=== PATIENT | female | born 1995 | race African-American/Black ===

== ENCOUNTER 2024-08-21 06:52 | Inpatient (IN) | payer OTHER ==
[~2024-08-21] VITALS: Ht 167.6 cm; Wt 60.4 kg
[2024-08-21 07:24] LABS: COVID AG,FIA SOURCE NASAL SWAB
[2024-08-21 07:48] LABS: SARS-COV2 (COVID) ANTIGEN,FIA Negative (Negative)
[2024-08-21 07:49] LABS: BASOPHILS % (AUTO) 1.1 % (0.0-2.0); EOSINOPHILS % (AUTO) 3.7 % (1.0-6.0); HEMATOCRIT 33.9 % (36-46); HEMOGLOBIN 10.3 g/dL (12.0-16.0); LYMPHOCYTES # (AUTO) 2.4 K/uL (1.0-4.8); LYMPHOCYTES % (AUTO) 44.7 % (22.0-44.0); MEAN CORPUSCULAR HEMOGLOBIN 23.6 pg (26.0-34.0); MEAN CORPUSCULAR HGB CONC 30.3 G/dL (31.0-37.0); MEAN CORPUSCULAR VOLUME 78 fL (80-100); MONOCYTES # (AUTO) 0.2 K/uL (0.1-1.0); MONOCYTES % (AUTO) 4.5 % (2.0-9.0); NEUTROPHILS # (AUTO) 2.5 K/uL (1.8-7.7); PLATELET COUNT (AUTO) 353 K/uL (150-450); RED BLOOD CELL COUNT(AUTO) 4.34 MIL/uL (4.00-5.20); RED CELL DISTRIBUTION WIDTH 20.6 % (11.5-14.5); WHITE BLOOD COUNT (AUTO) 5.4 K/uL (4.5-11.0)
[2024-08-21 07:58] LABS: RBC MORPHOLOGY COMMENT ABNORMAL RBC MORPH
[2024-08-21 08:04] LABS: ANION GAP 10 mmol/L (8-16); CARBON DIOXIDE 23 mmol/L (22-29); CHLORIDE 103 mmol/L (98-107); CREATININE 0.82 mg/dL (0.60-1.30); GLOMERULAR FILTR. RATE CALC > 60 mL/min (>60); GLUCOSE,RANDOM 82 mg/dL (70-110); POTASSIUM 3.8 mmol/L (3.5-5.1); SODIUM SERUM 136 mmol/L (136-145); UREA NITROGEN, BLOOD 12 mg/dL (7-18)
[2024-08-21 08:09] LABS: ALCOHOL, BLOOD (SERUM) < 3 mg/dL (0-10)
[2024-08-21] MEDS ORDERED: ZOLPIDEM TARTRATE 10 MG TABLET PO PRN (10:15)
[2024-08-21] MEDS ORDERED: LORazepam 2 MG/ML VIAL ONE (13:00)
[2024-08-21] MEDS ORDERED: DiphenhydrAMINE HCL 50 MG/ML VIAL ONE (13:00)
[2024-08-21] MEDS ORDERED: HALOPERIDOL LACTATE 5 MG/ML VIAL ONE (13:00)
[2024-08-21] MEDS: HALOPERIDOL LACTATE 5 MG/ML VIAL IM ONE (13:19)
[2024-08-21] MEDS: LORazepam 2 MG/ML VIAL IM ONE (13:19)
[2024-08-21] MEDS: DiphenhydrAMINE HCL 50 MG/ML VIAL IM ONE (13:19)
[2024-08-21 15:07] VITALS: O2SAT 100
[2024-08-21 18:27] VITALS: BP 100/71; PULSE 62; RESP 16; TEMP 97.1; O2SAT 97
[2024-08-21 18:35] VITALS: BP 88/56; PULSE 81; RESP 16
[2024-08-21 18:40] VITALS: BP 85/45; PULSE 83; RESP 16
[2024-08-22 01:34] VITALS: BP 105/75; PULSE 66; RESP 16; TEMP 97.2; O2SAT 96
[2024-08-22 13:24] LABS: CHOL/HDL RATIO 2.1 (3.9-5.7)
[2024-08-22] MEDS ORDERED: DOCUSATE SODIUM 100 MG CAPSULE PO PRN (15:30)
[2024-08-22] MEDS ORDERED: PETROLATUM,WHITE 28 GM JELLY TP PRN (15:30)
[2024-08-22] MEDS ORDERED: GuaiFENesin/D-METHORPHAN [SUGAR-FREE] 200-20MG/10 ML SYRUP UDCUP PO PRN (15:30)
[2024-08-22] MEDS ORDERED: MAG HYDROX/ALUMINUM HYD/SIMETH ES 30 ML SUSPENSION UDCUP PO PRN (15:30)
[2024-08-22] MEDS ORDERED: CloNIDine HCL 0.1 MG TABLET PO PRN (15:30)
[2024-08-22] MEDS ORDERED: ONDANSETRON 4 MG TABLET PO PRN (15:30)
[2024-08-22] MEDS ORDERED: MAGNESIUM HYDROXIDE SUSPENSION 30 ML UDCUP PO PRN (15:30)
[2024-08-22] MEDS ORDERED: IBUPROFEN 400 MG TABLET PO PRN (15:30)
[2024-08-22] MEDS ORDERED: LOPERAMIDE HCL 2 MG CAPSULE PO PRN (15:30)
[2024-08-22] MEDS ORDERED: NICOTINE 14 MG/24 HOUR PATCH TD PRN (15:30)
[2024-08-22] MEDS ORDERED: ALBUTEROL SULFATE HFA 90 MCG/PUFF 8 GM INHALER IH PRN (15:30)
[2024-08-22 20:18] VITALS: BP 110/74; PULSE 72; RESP 16; TEMP 97.3; O2SAT 97
[2024-08-23 08:49] VITALS: BP 105/65; PULSE 98; RESP 16; TEMP 96.8; O2SAT 99
[2024-08-23] MEDS ORDERED: LORazepam 2 MG/ML VIAL ONE (16:37)
[2024-08-23] MEDS: HALOPERIDOL LACTATE 5 MG/ML VIAL IM ONE (16:46)
[2024-08-23] MEDS: DiphenhydrAMINE HCL 50 MG/ML VIAL IM ONE (16:46)
[2024-08-23] MEDS: LORazepam 2 MG/ML VIAL IM ONE (16:46)
[2024-08-23] MEDS: INFLUENZA VIRUS VACCINE TVS (6MO+) 2024-25/PF 45 MCG/0.5 ML SYRINGE IM. ONE (16:47)
[2024-08-23 20:06] VITALS: BP 99/58; PULSE 104; RESP 16; TEMP 97.3; O2SAT 98
[2024-08-24 08:43] VITALS: RESP 16
[2024-08-24 10:26] LABS: ALCOHOL, URINE DRUG SCREEN NEGATIVE (NEGATIVE); AMPHET/METH SCREEN,URINE POSITIVE (NEGATIVE); BARBITURATE SCREEN, URINE NEGATIVE (NEGATIVE); BENZODIAZEPINES SCREEN,URINE NEGATIVE (NEGATIVE); CANNABINOID SCREEN,URINE NEGATIVE (NEGATIVE); COCAINE SCREEN,URINE NEGATIVE (NEGATIVE); METHADONE SCREEN, URINE NEGATIVE (NEGATIVE); OPIATE SCREEN,URINE NEGATIVE (NEGATIVE); PHENCYCLIDINE SCREEN,URINE NEGATIVE (NEGATIVE)
[2024-08-24 10:27] LABS: APPEARANCE,URINE CLEAR (CLEAR); BILIRUBIN,URINE NEGATIVE (NEGATIVE); COLOR,URINE LIGHT YELLOW (YELLOW); GLUCOSE, URINE (UA) NEGATIVE (NEGATIVE); KETONES,URINE NEGATIVE (NEGATIVE); LEUKOCYTE ESTERASE ,URINE SMALL (NEGATIVE); NITRATE,URINE NEGATIVE (NEGATIVE); OCCULT BLOOD,URINE SMALL (NEGATIVE); PROTEIN,URINE NEGATIVE (NEGATIVE); SPECIFIC GRAVITIY, URINE 1.026 (1.003-1.030); UROBILINOGEN,URINE <=1.0 mg/dL (<=1.0)
[2024-08-24 10:33] LABS: BACTERIA,URINE Few /HPF (None Seen); RBC,URINE 0-2 /HPF (0-2)
[2024-08-24] MEDS ORDERED: LORazepam 2 MG/ML VIAL ONE (18:01)
[2024-08-24] MEDS ORDERED: HALOPERIDOL LACTATE 5 MG/ML VIAL ONE (18:01)
[2024-08-24] MEDS ORDERED: DiphenhydrAMINE HCL 50 MG/ML VIAL ONE (18:01)
[2024-08-24] MEDS: HALOPERIDOL LACTATE 5 MG/ML VIAL IM ONE (18:17)
[2024-08-24] MEDS: LORazepam 2 MG/ML VIAL IM ONE (18:17)
[2024-08-24] MEDS: DiphenhydrAMINE HCL 50 MG/ML VIAL IM ONE (18:17)
[2024-08-25 08:35] VITALS: BP 110/65; PULSE 83; RESP 16; TEMP 97.8; O2SAT 97
[2024-08-25 20:03] VITALS: BP 107/66; PULSE 88; RESP 18; TEMP 97.9
[2024-08-25] MEDS: DiphenhydrAMINE HCL 50 MG/ML VIAL IM ONE (20:24)
[2024-08-25] MEDS: LORazepam 2 MG/ML VIAL IM ONE (20:25)
[2024-08-25] MEDS: HALOPERIDOL LACTATE 5 MG/ML VIAL IM ONE (20:25)
[2024-08-26 09:06] VITALS: BP 143/80; PULSE 86; RESP 17; TEMP 96.1; O2SAT 100
[2024-08-26] MEDS ORDERED: LORazepam 2 MG/ML VIAL ONE (16:34)
[2024-08-26] MEDS ORDERED: DiphenhydrAMINE HCL 50 MG/ML VIAL ONE (16:34)
[2024-08-26] MEDS ORDERED: HALOPERIDOL LACTATE 5 MG/ML VIAL ONE (16:34)
[2024-08-26] MEDS: DiphenhydrAMINE HCL 50 MG/ML VIAL IM ONE (18:49)
[2024-08-26] MEDS: LORazepam 2 MG/ML VIAL IM ONE (18:49)
[2024-08-26] MEDS: HALOPERIDOL LACTATE 5 MG/ML VIAL IM ONE (18:51)
[2024-08-26 20:21] VITALS: RESP 17
[2024-08-27 08:03] VITALS: RESP 18
[2024-08-27 08:20] VITALS: RESP 18
[2024-08-27] MEDS: ACETAMINOPHEN 325 MG TABLET PO PRN (08:20)
[2024-08-27 09:20] VITALS: RESP 17
[2024-08-27] MEDS: RisperiDONE 2 MG TABLET PO SCH (10:00)
[2024-08-28 08:22] VITALS: BP 105/74; PULSE 100; RESP 16; TEMP 97; O2SAT 100
[2024-08-28] MEDS: HALOPERIDOL 5 MG TABLET PO PRN (16:11)
[2024-08-28] MEDS: LORazepam 2 MG TABLET PO PRN (16:11)
[2024-08-29 01:18] VITALS: RESP 18
[2024-08-29 08:08] VITALS: BP 113/69; PULSE 68; RESP 16; TEMP 97.9; O2SAT 99
[2024-08-29 20:30] VITALS: BP 111/64; PULSE 79; RESP 17; TEMP 97.8; O2SAT 99
[2024-08-30 08:05] VITALS: BP 103/69; PULSE 88; RESP 16; TEMP 97.9; O2SAT 98
[2024-08-31 08:33] VITALS: BP 108/65; PULSE 97; RESP 16; TEMP 97.6; O2SAT 100
[2024-08-31] MEDS ORDERED: RISP-32 PO (09:14)
== END 2024-08-31 18:29 | disposition left against medical advice (07) | DRG 885 ==
LOC: EMS 06:52 → B2S 12:21 → B3A 15:27
PROVIDERS: ADMIT Psychiatry & Neurology Child & Adolescent Psychiatry; ATTEND Psychiatry & Neurology Child & Adolescent Psychiatry
PROC: GZ56ZZZ Individual Psychotherapy, Supportive (ICD-10-PCS; principal; 2024-08-22)
PROC: GZ58ZZZ Individual Psychotherapy, Cognitive-Behavioral (ICD-10-PCS; 2024-08-22)
PROC: GZHZZZZ Group Psychotherapy (ICD-10-PCS; 2024-08-22)
DX: F29 Unspecified psychosis not due to a substance or known physiological condition (principal); F17.200 Nicotine dependence, unspecified, uncomplicated; Z20.822 Contact with and (suspected) exposure to COVID-19; F41.9 Anxiety disorder, unspecified; G47.00 Insomnia, unspecified; D64.9 Anemia, unspecified; I95.9 Hypotension, unspecified
CPT/HCPCS: 80048; 80061; 80307; 81001; 83036; 84703; 85025; 99291; G0480; J1200; J1630; J2060

== ENCOUNTER 2024-08-21 17:49 | Emergency (ER) | payer SELFPAY ==
[~2024-08-21] VITALS: Ht 162.6 cm; Wt 54.5 kg
[2024-08-21 19:28] VITALS: TEMP 97.5
[2024-08-21 20:55] LABS: HEMATOCRIT 30.9 % (36-46); HEMOGLOBIN 9.5 g/dL (12.0-16.0); LYMPHOCYTES # (AUTO) 2.2 K/uL (1.0-4.8); LYMPHOCYTES % (AUTO) 47.8 % (22.0-44.0); MEAN CORPUSCULAR HEMOGLOBIN 23.6 pg (26.0-34.0); MEAN CORPUSCULAR HGB CONC 30.6 G/dL (31.0-37.0); MEAN CORPUSCULAR VOLUME 77 fL (80-100); MONOCYTES # (AUTO) 0.3 K/uL (0.1-1.0); MONOCYTES % (AUTO) 7.1 % (2.0-9.0); NEUTROPHILS # (AUTO) 1.7 K/uL (1.8-7.7); NEUTROPHILS % (AUTO) 36.1 % (40.0-70.0); PLATELET COUNT (AUTO) 376 K/uL (150-450); RED BLOOD CELL COUNT(AUTO) 4.01 MIL/uL (4.00-5.20); RED CELL DISTRIBUTION WIDTH 20.4 % (11.5-14.5); WHITE BLOOD COUNT (AUTO) 4.7 K/uL (4.5-11.0)
[2024-08-21 20:58] LABS: ANION GAP 7 mmol/L (8-16); CALCIUM, TOTAL 8.6 mg/dL (8.8-10.5); CARBON DIOXIDE 23 mmol/L (22-29); CHLORIDE 100 mmol/L (98-107); CREATININE 0.81 mg/dL (0.60-1.30); GLOMERULAR FILTR. RATE CALC > 60 mL/min (>60); GLUCOSE,RANDOM 97 mg/dL (70-110); POTASSIUM 3.9 mmol/L (3.5-5.1); SODIUM SERUM 130 mmol/L (136-145); UREA NITROGEN, BLOOD 11 mg/dL (7-18)
[2024-08-21 21:26] LABS: RBC MORPHOLOGY COMMENT ABNORMAL RBC MORPH
[2024-08-21 22:08] LABS: PH,URINE DRUG SCREEN 6.5 (5.0-8.0)
[2024-08-21 22:22] LABS: ALCOHOL, URINE DRUG SCREEN NEGATIVE (NEGATIVE); AMPHET/METH SCREEN,URINE POSITIVE (NEGATIVE); BARBITURATE SCREEN, URINE NEGATIVE (NEGATIVE); BENZODIAZEPINES SCREEN,URINE NEGATIVE (NEGATIVE); CANNABINOID SCREEN,URINE NEGATIVE (NEGATIVE); COCAINE SCREEN,URINE NEGATIVE (NEGATIVE); METHADONE SCREEN, URINE NEGATIVE (NEGATIVE); OPIATE SCREEN,URINE NEGATIVE (NEGATIVE); PHENCYCLIDINE SCREEN,URINE POSITIVE (NEGATIVE)
[2024-08-22 00:06] VITALS: BP 117/80; PULSE 80; RESP 15; O2SAT 100
== END 2024-08-22 01:21 | disposition short-term general hospital (02) ==
LOC: EMS 17:49
DX: F19.10 Other psychoactive substance abuse, uncomplicated (principal); R41.82 Altered mental status, unspecified
CPT/HCPCS: 80048; 80307; 85025; 99285